=== PATIENT | female | born 1975 | race Caucasian/White ===

== ENCOUNTER 2018-03-28 21:20 | Emergency (ER) | payer OTHER ==
[2018-03-28] MEDS: SODIUM CHLORIDE 0.9% 1000ML 1,000 ML IV SCH ×2 (21:45→23:01)
[2018-03-28] MEDS ORDERED: PANTOPRAZOLE SODIUM 40 MG/10 ML PDS IV ONE (21:58)
[2018-03-28] MEDS ORDERED: ONDANSETRON HCL 4 MG/2 ML SOL IV ONE (21:59)
[2018-03-28 22:04] LABS: INFLUENZA A NEGATIVE (NEGATIVE); INFLUENZA B NEGATIVE (NEGATIVE)
[2018-03-28] MEDS ORDERED: ONDANSETRON HCL 4 MG/2 ML SOL ONE (22:12)
[2018-03-28] MEDS ORDERED: PANTOPRAZOLE SODIUM 40 MG/10 ML PDS ONE (22:12)
[2018-03-28 22:55] VITALS: RESP 16; TEMP 97.2
[2018-03-28] MEDS ORDERED: METOCLOPRAMIDE HYDROCHLORIDE 5 MG/ML SOL IV ONE (23:07)
[2018-03-28] MEDS ORDERED: ACETAMINOPHEN 325 MG PO ONE (23:07)
[2018-03-28 23:10] VITALS: PULSE 70
[2018-03-28] MEDS ORDERED: ACETAMINOPHEN 500 MG 500 MG TAB PO ONE (23:11)
[2018-03-28] MEDS ORDERED: METOCLOPRAMIDE HYDROCHLORIDE 5 MG/ML SOL ONE (23:13)
[2018-03-28] MEDS ORDERED: ACETAMINOPHEN 500 MG 500 MG TAB ONE (23:13)
[2018-03-28 23:52] VITALS: BP 92/60; O2SAT 97
== END 2018-03-28 23:59 | disposition home or self-care (01) | DRG 392 ==
LOC: ED 21:20
DX: K52.9 Noninfective gastroenteritis and colitis, unspecified (principal)
CPT/HCPCS: 87804; 96365; 96366; 96374; 96375; 99282; 99284; J2405; J2765

== ENCOUNTER 2018-05-30 12:32 | Emergency (ER) | payer OTHER ==
[2018-05-30 13:10] LABS: APPEARANCE,URINE Slightly Cloudy; BILIRUBIN,URINE NEGATIVE (NEGATIVE); COLOR,URINE Yellow; GLUCOSE, URINE (UA) NEGATIVE (NEGATIVE); KETONES,URINE TRACE (NEGATIVE); LEUKOCYTE ESTERASE ,URINE TRACE (NEGATIVE); NITRATE,URINE POSITIVE (NEGATIVE); OCCULT BLOOD,URINE 2+ (NEG-TRACE); PH,URINE 5.5; UROBILINOGEN,URINE 0.2 (0.2-1.0 EU)
[2018-05-30 13:24] LABS: BACTERIA 3+ (< 1+); CRYSTALS NEGATIVE (0-3 AVE/HPF); RBC,URINE NEG (0-3AV/HPF)
[2018-05-30 14:14] LABS: BASOPHILS % (AUTO) 1 % (0-3); EOSINOPHILS % (AUTO) 1 % (0-9); HEMATOCRIT 41 % (35-47); HEMOGLOBIN 13.8 gm/dl (12.0-15.5); LYMPHOCYTES % (AUTO) 41.4 % (10-50); MEAN CORPUSCULAR HEMOGLOBIN 31.3 pg (27.0-32.0); MEAN CORPUSCULAR HGB CONC 33.9 gm/dl (32.0-36.0); MEAN CORPUSCULAR VOLUME 92 fL (81-99); NEUTROPHILS % (AUTO) 48.5 % (37-80)
[2018-05-30 14:29] LABS: ALBUMIN 3.6 gm/dl (3.4-5.0); BILIRUBIN,TOTAL 0.4 mg/dl (0.2-1.0); CARBON DIOXIDE 26.8 mEq/L (21-32); CREATININE 0.78 mg/dl (0.60-1.00); POTASSIUM 3.9 mMol/L (3.5-5.1); TOTAL PROTEIN 7.2 gm/dl (6.4-8.2)
[2018-05-30] MEDS ORDERED: DIPHENHYDRAMINE 50 MG/ML SOL IM ONE (14:39)
[2018-05-30] MEDS ORDERED: CEFTRIAXONE 1 GM PDS IM ONE (14:40)
[2018-05-30] MEDS ORDERED: AZITHROMYCIN 250 MG TAB PO ONE (14:40)
[2018-05-30] MEDS ORDERED: AZITHROMYCIN 250 MG TAB ONE (14:43)
[2018-05-30] MEDS ORDERED: DIPHENHYDRAMINE 50 MG/ML SOL ONE (14:45)
[2018-05-30] MEDS ORDERED: CEFTRIAXONE 1 GM PDS ONE (14:56)
[2018-05-30] MEDS ORDERED: LIDOCAINE HCL 1% MPF 30 SOL ONE (14:58)
[2018-05-30 15:19] VITALS: RESP 16
[2018-05-30 15:40] VITALS: BP 121/83; PULSE 76; TEMP 98.3; O2SAT 98
== END 2018-05-30 15:45 | disposition home or self-care (01) | DRG 690 ==
LOC: ED 12:32
DX: N39.0 Urinary tract infection, site not specified (principal); B96.89 Other specified bacterial agents as the cause of diseases classified elsewhere; N76.0 Acute vaginitis; Z20.2 Contact with and (suspected) exposure to infections with a predominantly sexual mode of transmission
CPT/HCPCS: 36415; 80053; 81001; 85025; 87077; 87088; 87186; 87210; 96372; 99283; J0696; J1200; A9270-GY; J2001